=== PATIENT | male | born 1970 | race Caucasian/White ===

== ENCOUNTER 2016-05-10 15:22 | Emergency (ER) | payer OTHER ==
[2016-05-10 15:51] LABS: BASOPHIL 0.3 % (0-2); EOSINOPHIL 0.6 % (0-5); HCT 45.6 % (42.0-52.0); HGB 16.2 g/dl (13.2-18.0); LYMPHOCYTE 24.4 % (15-48); MCHC 35.5 g/dL (32.0-36.0); MCV 81.7 fL (78.0-100.0); MONOCYTE 6.7 % (0-12); MPV 9.6 fL (6.0-9.5); PLT 210 K/uL (150-400); RBC 5.58 M/uL (4.70-6.00); RDW 12.6 % (11.5-14.0); WBC 6.7 K/uL (4.0-10.5)
[2016-05-10 15:54] LABS: CREATININE 1.1 mg/dL (0.7-1.2); POTASSIUM 4.4 mmol/L (3.5-5.1)
== END 2016-05-10 18:30 | disposition home or self-care (01) ==
LOC: FER 15:22
PROVIDERS: Emergency Medicine
DX: I47.1 Supraventricular tachycardia (principal); Z88.1 Allergy status to other antibiotic agents
CPT/HCPCS: 36415; 71010; 80048; 84443; 84484; 85025; 93005